=== PATIENT | female | born 1950 | race Caucasian/White ===

== ENCOUNTER → 2017-07-17 | Outpatient (CLI) | payer OTHER ==
[~2017-07-17] MED LIST: GADOBUTROL 10 ML VIAL IVP ONE
== END ==
LOC: FIMAGING 06:55
PROVIDERS: ATTEND Psychiatry & Neurology Neurology
DX: R41.3 Other amnesia (principal)
CPT/HCPCS: 70553; A9585

== ENCOUNTER → 2017-12-04 | Outpatient (CLI) | payer OTHER | LOC: FIMAGING 08:27 | PROVIDERS: ATTEND Internal Medicine | DX: Z12.31 Encounter for screening mammogram for malignant neoplasm of breast (principal); Z13.820 Encounter for screening for osteoporosis; Z78.0 Asymptomatic menopausal state; Z96.643 Presence of artificial hip joint, bilateral; Z85.43 Personal history of malignant neoplasm of ovary ==

== ENCOUNTER → 2018-01-19 | Outpatient (CLI) | payer OTHER | LOC: FIMAGING 07:23 | PROVIDERS: ATTEND Psychiatry & Neurology Neurology | DX: R90.89 Other abnormal findings on diagnostic imaging of central nervous system (principal); R90.82 White matter disease, unspecified | CPT/HCPCS: 70553; A9585 ==

== ENCOUNTER 2018-05-30 14:42 | Emergency (ER) | payer OTHER ==
--- NOTE | 2018-05-30 14:53 | EDPHY ---
H & P Stated Complaint: bradycardia hr in 30's cp Time Seen by Provider: 05/30/18 14:53 HPI/ROS: CHIEF COMPLAINT: Chest pain HISTORY OF PRESENT ILLNESS: The patient presents to the ED after she developed left-sided anterior chest pain at 9 o'clock this morning. The patient reports mild dyspnea. She denies radiation of the pain. She denies fever, cough or congestion. The patient has no history of coronary artery disease. The patient denies any abdominal pain. She denies headache or acute neurologic symptoms. She has never experienced this type of discomfort in the past. She currently rates as a 3/10. The patient reportedly was noted to be bradycardic in triage. REVIEW OF SYSTEMS: A comprehensive 10 point review of systems is otherwise negative aside from elements mentioned in the history of present illness. Source: Patient - Personal History Current Tetanus Diphtheria and Acellular Pertussis (TDAP): Yes - Medical/Surgical History Hx Asthma: No Hx Chronic Respiratory Disease: No Hx Diabetes: No Hx Cardiac Disease: No Hx Renal Disease: No Hx Cirrhosis: No Hx Alcoholism: No Hx HIV/AIDS: No Hx Splenectomy or Spleen Trauma: No Other PMH: oophorectomy - Social History Smoking Status: Never smoked - Physical Exam Exam: General Appearance: Alert, no distress Eyes: Pupils equal and round no pallor or injection ENT, Mouth: Mucous membranes moist Respiratory: There are no retractions, lungs are clear to auscultation Cardiovascular: Regular rate and rhythm Gastrointestinal: Abdomen is soft and nontender, no masses, bowel sounds normal Neurological: A&O, normal motor function, normal sensory exam, normal cranial nerves Skin: Warm and dry, no rashes Musculoskeletal: Neck is supple nontender Extremities: symmetrical, full range of motion Constitutional: Initial Vital Signs Temperature (C) 36.6 C 05/30/18 14:46 Heart Rate 34 L 05/30/18 14:46 Respiratory Rate 18 05/30/18 14:46 Blood Pressure 134/62 H 05/30/18 14:46 O2 Sat (%) 95 05/30/18 14:46 O2 Delivery Mode Room Air Allergies/Adverse Reactions: peanuts Allergy (Uncoded 05/30/18 14:46) Home Medications: Medication Instructions Recorded NK [No Known Home Meds] 05/30/18 Medical Decision Making - Diagnostics EKG Interpretation: EKG: Complete interpretation has been separately recorded in the [facility] archive. Summary impression: Sinus bradycardia, rate 47, no ST segment elevation or depression noted. Imaging Results: Imaging Impressions Chest X-Ray 05/30/18 14:57 Impression: Negative. Chest/Thorax CTA 05/30/18 15:44 Impression: 1. Mild aneurysmal dilatation of the ascending aorta measuring 4.5 cm without dissection. 2. Mild scarring or subsegmental atelectasis at each lung base. Findings discussed with Dr. Ramiro Awan answering for Dr. Jermaine Arriaga at 17 :12 hour, 05/30/2018. ED Course/Re-evaluation: The patient was brought back and immediately placed on a conveyor monitor. She is noted to have frequent PVCs. The patient's initial EKG demonstrates only sinus bradycardia without ischemic changes. Her initial troponin is normal. The patient did undergo a echocardiogram which demonstrates no wall motion abnormality or acute finding per Dr. Mikal Moss from Cardiology. CT angiography has been ordered to evaluate the patient's aorta and the possibility of thromboembolic disease. CT angiography demonstrates no evidence of dissection or pulmonary embolism. 5:15 p.m.: The patient is treated with 15 mg of IV Toradol. I reexamined the patient at 6:00 p.m.. She is feeling better. I favor that she likely is having some pleurisy or costochondritis. The patient has no risk factors for coronary artery disease. She exercises frequently without chest pain or shortness of breath. She has been informed that my suspicion for ACS is low however cannot be fully excluded. I will have the patient begin ibuprofen. I have told her out of an abundance of precaution and is not on reasonable to have her to have her follow up with Cardiology for consideration of a treadmill stress test. Differential Diagnosis: Differential diagnosis considered includes bradycardia, myocardial infarction, pericardial effusion, pulmonary embolism, aortic dissection - Data Points Laboratory Results: Laboratory Results 05/30/18 15:00 05/30/18 15:00 05/30/18 05/30/18 05/30/18 15:08 15:00 15:00 WBC 6.82 10^3/uL 10^3/uL (3.80-9.50) RBC 4.71 10^6/uL 10^6/uL (4.18-5.33) Hgb 15.6 g/dL g/dL (12.6-16.3) Hct 44.7 % % (38.0-47.0) MCV 94.9 fL fL (81.5-99.8) MCH 33.1 pg pg (27.9-34.1) MCHC 34.9 g/dL g/dL (32.4-36.7) RDW 13.4 % % (11.5-15.2) Plt Count 159 10^3/uL 10^3/uL (150-400) MPV 12.6 fL H fL (8.7-11.7) Neut % (Auto) 60.3 % % (39.3-74.2) Lymph % (Auto) 30.2 % % (15.0-45.0) [place] % (Auto) 7.2 % % (4.5-13.0) Eos % (Auto) 1.6 % % (0.6-7.6) Baso % (Auto) 0.6 % % (0.3-1.7) Nucleat RBC Rel Count 0.0 % % (0.0-0.2) Absolute Neuts (auto) 4.11 10^3/uL 10^3/uL (1.70-6.50) Absolute Lymphs (auto) 2.06 10^3/uL 10^3/uL (1.00-3.00) Absolute Monos (auto) 0.49 10^3/uL 10^3/uL (0.30-0.80) Absolute Eos (auto) 0.11 10^3/uL 10^3/uL (0.03-0.40) Absolute Basos (auto) 0.04 10^3/uL 10^3/uL (0.02-0.10) Absolute Nucleated RBC 0.00 10^3/uL 10^3/uL (0-0.01) Immature Gran % 0.1 % % (0.0-1.1) Immature Gran # 0.01 10^3/uL 10^3/uL (0.00-0.10) Sodium 140 mEq/L mEq/L (135-145) Potassium 3.9 mEq/L mEq/L (3.3-5.0) Chloride 102 mEq/L mEq/L (97-110) Carbon Dioxide 29 mEq/l mEq/l (22-31) Anion Gap 9 mEq/L mEq/L (8-16) BUN 13 mg/dL mg/dL (7-23) Creatinine 0.8 mg/dL mg/dL (0.6-1.0) Estimated GFR > 60 Glucose 106 mg/dL H mg/dL (70-100) Calcium 10.3 mg/dL mg/dL (8.5-10.4) POC Troponin I 0.01 ng/mL ng/mL (0.00-0.08) Medications Given: Discontinued Medications Ketorolac Tromethamine (Toradol) 15 mg IVP EDNOW ONE Stop: 05/30/18 17:15 Last Admin: 05/30/18 17:28 Dose: 15 mg Point of Care Test Results: Chemistry 05/30/18 15:08 POC Troponin I 0.01 ng/mL ng/mL (0.00-0.08) Departure - Departure Disposition: Home, Routine, Self-Care Clinical Impression: Chest pain, Chest wall pain Condition: Good Instructions: Chest Pain (ED), Chest Wall Pain (ED) Additional Instructions: 1. Based upon the testing done in the Emergency Department today we see no evidence of a heart attack. 2. We are unable to fully exclude coronary artery disease based upon the testing available in the Emergency Department. 3. For this reason, we would like you to be seen by cardiology for consideration of additional testing within the next 3 days. 4. Please contact the [facility] you have been referred to schedule this appointment as soon as possible. Their offices are typically open from 8:30am- 5pm M-F. 5. Please return to the Emergency Department immediately for any recurrent chest pain, difficulty breathing or other concerns. 6. Please take 400 mg of ibuprofen 3 times a day as you may be having some inflammation of the cartilage causing your symptoms today. Referrals: Linda Alexandra MD [Primary Care Provider] - As per Instructions
[2018-05-30 15:15] LABS: PLATELET COUNT 159 10^3/uL (150-400)
--- NOTE | 2018-05-30 15:18 | CPEKG ---
Test Reason : OPEN Blood Pressure : / mmHG Vent. Rate : 047 BPM Atrial Rate : 046 BPM P-R Int : 180 ms QRS Dur : 091 ms QT Int : 473 ms P-R-T Axes : 077 030 040 degrees QTc Int : 419 ms Sinus bradycardia Confirmed by Jermaine Arriaga ([id number]) on 05/30/2018 3:18:10 PM Referred By: Confirmed By:Jermaine Arriaga
[2018-05-30] MEDS ORDERED: IOPAMIDOL (ISOVUE 370) 100 ML BTL IV ONE (16:21)
--- NOTE | 2018-05-30 16:46 | ECHO ---
[email or web address] [address] [address] Main: [phone] Fax: [email or web address] Echocardiogram Name: TOO HOSKINS MR#: [id number] Study Date: 05/30/2018 Study Time: 03:10 PM Date of : 1950 Age: 68 year(s) Height: 162.6 cm (64 in.) Weight: 56.7 kg (125 lb.) BSA: 1.6 m2 Gender: Female Examination: Echo Indication: Chest Pain Image Quality: Contrast: Requested by: Jermaine Arriaga BP: / Heart Rate: Rhythm: Indication: Chest Pain Procedure Staff [employer]der Press Operator: Gayathri Bello RDCS Reading Physician: Mikal Moss MD Requesting Provider: Conclusions: Normal size left ventricle. Normal global systolic LV function. The ejection fraction is visually estimated to be 60 %. No regional wall motion abnormality. Normal diastolic LV function. Mild mitral valve regurgitation is present. Trivial tricuspid valve regurgitation. The pulmonary artery pressure is normal. There are no significant valvular abnormalities. Measurements: Chambers Valvular Assessment AV/MV Valvular Assessment TV/PV Normal Normal Normal Name Value Range Name Value Range Name Value Range Ao Carola (2D): 3.0 cm (1.4 cm-2.6 AV Vmax: 1.27 m/s (1 m/s-1.7 TR Vmax: 2.40 mm/s ( - ) cm) m/s) TR PGmax: 23 mmHg ( - ) IVSd (2D): 0.9 cm (0.6 cm-1.1 AV maxP mmHg ( - ) syst. PAP: 28 mmHg ( - ) cm) AV meanP mmHg ( - ) PV Vmax: 1.15 m/s (0.6 m/s-0.9 LVDd (2D): 4.0 cm (3.9 cm-5.3 LVOT Vmax: 1.05 m/s (0.7 m/s-1.1 m/s) cm) m/s) PV PGmax: 5 mmHg ( - ) LVDs (2D): 2.5 cm (2.1 cm-4 LORRIE (Vmax): 2.6 cm2 ( - ) cm) LORRIE (VTI): 2.7 cm ( - ) LVPWd (2D): 0.9 cm ( - ) MV E Vmax: 0.49 m/s ( - ) LVOTd 2.0 cm 2.0 cm mm MV A Vmax: 0.42 m/s ( - ) LVEF (BP): 55 % (>=55 %) MV E/A: 1.17 ( - ) Visual EF: 60 % MV PHT: 0.085 s ( - ) RVDd(2D): 2.8 cm (1.9 cm-3.8 MVA (PHT): 2.6 s ( - ) cmmm) Continued Measurements: Patient: TOO HOSKINS Study Date: 05/30/2018 Page 1 of 2 03:10 PM Chambers Valvular Assessment AV/MV Valvular Assessment TV/PV Name Value Name Value Name Value LADs: 3.4 cm MV DecTime: 261 m/s CVP (est.): 5 mmHg LADs Lon.4 cm MV E/E' Septal: 6.50 LA Area: 13.8 cm2 MV E/E' Lateral: 7.70 LA Volume: 43 ml LA Volume Index: 26.9 ml/m2 RA Area: 10.9 cm2 Additional Vessels Name Value Ao Ascendin.6 cm Inferior Vena Cava: 2.7 cm Findings: Left Ventricle: Normal size left ventricle. No LV hypertrophy. Normal global systolic LV function. The ejection fraction is visually estimated to be 60 %. No regional wall motion abnormality. Normal diastolic LV function. Right Ventricle: Normal size right ventricle. Normal RV function. Left Atrium: The left atrium is normal in size. Right Atrium: The right atrium is normal in size. Mitral Valve: The mitral valve is normal in appearance and function. Mild mitral valve regurgitation is present. No mitral stenosis is present. Aortic Valve: The aortic valve is tri-leaflet. Aortic sclerosis is present. There is no significant aortic valve regurgitation. No aortic valve stenosis is present. Tricuspid Valve: The tricuspid valve is normal in appearance and function. Trivial tricuspid valve regurgitation. The pulmonary artery pressure is normal. Right ventricular systolic pressure measures 28mmHg. Pulmonic Valve: The pulmonic valve is normal in appearance and function. Mild pulmonic valve regurgitation is noted. Aorta: The aorta is normal. Normal size aortic root measuring 3.0 cm. Normal size ascending aorta measuring 3.6 cm. IVC: The IVC is dilated. Pericardium: No pericardial effusion. No pleural effusion. Exam Comments: Technically difficult, patient very thin. (No Signature Object) Patient: TOO HOSKINS Study Date: 05/30/2018 Page 2 of 2 03:10 PM [id number]
[2018-05-30] MEDS ORDERED: KETOROLAC 15 MG/1 ML SDV IVP ONE (17:14)
[2018-05-30 17:50] VITALS: BP 125/81
== END 2018-05-30 17:49 | disposition home or self-care (01) ==
DX: R07.9 Chest pain, unspecified (principal)
CPT/HCPCS: 71045; 71275; 93005; 93306; 96374; 99285; J1885; Q9967; 84484-PO

== ENCOUNTER → 2019-01-04 | Outpatient (CLI) | payer OTHER | LOC: FIMAGING 10:17 | PROVIDERS: ATTEND Internal Medicine | DX: Z12.31 Encounter for screening mammogram for malignant neoplasm of breast (principal) ==